=== PATIENT | female | born 1990 | race Caucasian/White ===

== ENCOUNTER 2021-01-29 19:49 | Emergency (ER) | payer MEDICAID ==
[~2021-01-29] VITALS: Ht 157.5 cm; Wt 75.0 kg
[2021-01-29 20:29] VITALS: BP 129/89
[2021-01-30] MEDS ORDERED: NAPR-681 PO (01:25)
[2021-01-30] MEDS ORDERED: MECL-159 PO (01:25)
== END 2021-01-30 01:35 | disposition home or self-care (01) ==
LOC: ER 19:49
DX: S00.83XA Contusion of other part of head, initial encounter (principal); W10.8XXA Fall (on) (from) other stairs and steps, initial encounter; Z72.89 Other problems related to lifestyle; Y93.01 Activity, walking, marching and hiking; Y92.89 Other specified places as the place of occurrence of the external cause
CPT/HCPCS: 70486; 93005; 99284

== ENCOUNTER 2021-09-30 13:59 | Observation (INO) | payer MEDICAID ==
[~2021-09-30] VITALS: Ht 160 cm; Wt 84.8 kg
[~2021-09-30 13:59] MED LIST: MECL-159 PO; NAPR-681 PO
[2021-09-30] MEDS ORDERED: LACTATED RINGERS 1,000 ML IV SCH (15:45)
[2021-09-30] MEDS ORDERED: ACETAMINOPHEN 500MG TABLET PO PRN (15:45)
== END 2021-09-30 17:40 | disposition home or self-care (01) ==
LOC: 8 EST A/PP 13:59
PROVIDERS: ADMIT Obstetrics & Gynecology; ATTEND Obstetrics & Gynecology
DX: O99.891 Other specified diseases and conditions complicating pregnancy (principal); M54.9 Dorsalgia, unspecified; O26.893 Other specified pregnancy related conditions, third trimester; R51.9 Headache, unspecified; H53.8 Other visual disturbances; O21.2 Late vomiting of pregnancy; O62.9 Abnormality of forces of labor, unspecified; Z3A.31 31 weeks gestation of pregnancy
CPT/HCPCS: 59025; 96360; G0378; 99281

== ENCOUNTER 2021-10-17 15:01 | Observation (INO) | payer MEDICAID ==
[~2021-10-17] VITALS: Ht 160 cm; Wt 83.0 kg
== END 2021-10-17 16:25 | disposition home or self-care (01) ==
LOC: 8 EST A/PP 15:01
PROVIDERS: ADMIT Specialist; ATTEND Obstetrics & Gynecology
DX: O26.893 Other specified pregnancy related conditions, third trimester (principal); R10.9 Unspecified abdominal pain; O62.9 Abnormality of forces of labor, unspecified; Z3A.33 33 weeks gestation of pregnancy
CPT/HCPCS: 59025; G0378; 99281

== ENCOUNTER 2021-11-06 22:53 | Observation (INO) | payer MEDICAID ==
[~2021-11-06] VITALS: Ht 152.4 cm; Wt 86.2 kg
[2021-11-07] MEDS ORDERED: FERROUS SULFATE
[2021-11-07] MEDS ORDERED: PREN1TAB78 PO
[2021-11-07] MEDS ORDERED: ASCORBIC ACID
== END 2021-11-07 03:42 | disposition home or self-care (01) ==
LOC: 8 EST LDRP 22:53
PROVIDERS: ADMIT Obstetrics & Gynecology; ATTEND Obstetrics & Gynecology
DX: O62.9 Abnormality of forces of labor, unspecified (principal); O36.8130 Decreased fetal movements, third trimester, not applicable or unspecified; O99.891 Other specified diseases and conditions complicating pregnancy; M54.9 Dorsalgia, unspecified; O26.893 Other specified pregnancy related conditions, third trimester; R10.13 Epigastric pain; R51.9 Headache, unspecified; R11.0 Nausea; H53.8 Other visual disturbances; Z3A.36 36 weeks gestation of pregnancy
CPT/HCPCS: 59025; 76805; 76818; G0378; 99281